=== PATIENT | male | born 1995 | race Caucasian/White ===

== ENCOUNTER 2017-06-01 07:47 | Emergency (ER) | payer OTHER, SELFPAY ==
[~2017-06-01] VITALS: Ht 188 cm; Wt 104.2 kg
[2017-06-01 07:49] VITALS: BP 143/85
[2017-06-01] MEDS ORDERED: SODIUM CHLORIDE 0.9% 1,000ML IVBOLUS ONE (08:30)
[2017-06-01] MEDS ORDERED: DIPHENHYDRAMINE 50 MG/ML, 1ML IVPush ONE (08:30)
[2017-06-01] MEDS ORDERED: PROCHLORPERAZINE 5 MG/ML, 2ML IVPush ONE (08:30)
[2017-06-01] MEDS ORDERED: PROCHLORPERAZINE 5 MG/ML, 2ML ONE (08:38)
[2017-06-01] MEDS ORDERED: DIPHENHYDRAMINE 50 MG/ML, 1ML ONE (08:38)
== END 2017-06-01 09:29 | disposition home or self-care (01) ==
LOC: ED 09:23
DX: J01.00 Acute maxillary sinusitis, unspecified (principal)
CPT/HCPCS: 70450; 96374; 96375; 99284; J0780; J1200; J7030